=== PATIENT | female | born 1965 | race African-American/Black ===

== ENCOUNTER 2020-04-29 13:46 | Emergency (ER) | payer SELFPAY ==
[~2020-04-29] VITALS: Ht 172.7 cm; Wt 67.6 kg
--- NOTE | 2020-04-29 13:46 | NUR ---
PT BIBRA FROM HOME FOR PSYCH EVAL. PT IS AAOX3, NOT IN RESPIRATORY DISTRESS, V/S STABLE, KEPT RESTED AND COMFORTABLE. WILL CONTINUE TO MONITOR.
--- NOTE | 2020-04-29 15:16 | NUR ---
PT SEEN AND EXAMINED BY .
[2020-04-29 15:42] VITALS: BP 127/99
--- NOTE | 2020-04-29 15:54 | NUR ---
Patient does not wish to proceed with medical care recommended by Dr. Tapia. Patient given information related to possible complications, up to and including , which could occur as a result of leaving the hospital at this time. Patient verbalizes understanding of risks involved due to leaving against medical advice. Patient refused to sign AMA form.
== END 2020-04-29 15:56 | disposition left against medical advice (07) ==
LOC: ER 13:48
DX: Z02.89 Encounter for other administrative examinations (principal)